=== PATIENT | male | born 1935 | race Caucasian/White ===

== ENCOUNTER 2018-08-18 20:31 | Emergency (ER) | payer OTHER ==
[2018-08-18] MEDS ORDERED: Morphine 4 MG/ML VIAL ONE (20:55)
[2018-08-18] MEDS ORDERED: Propofol 10 mg/ml Inj (20 ML) IV ONE (21:09)
[2018-08-18 21:19] LABS: BASO # 0.1 K/uL (0.0-0.2); BASO % 0.9 % (0.0-2.0); EOS # 0.3 K/uL (0.0-0.7); EOS % 3.5 % (0.0-4.0); HEMOGLOBIN 11.3 g/dL (12.0-18.0); LYMPH # 3.8 K/uL (1.0-4.3); MEAN CELL VOLUME 85.3 fL (80.0-94.0); MEAN CORPUSCULAR HEMOGLOBIN 27.6 pg (27.0-31.0); MEAN CORPUSCULAR HGB CONC 32.4 g/dL (33.0-37.0); MEAN PLATELET VOLUME 9.8 fL (7.2-11.7); MONO # 0.8 K/uL (0.0-0.8); MONO % 8.9 % (0.0-10.0); NEUT # 3.5 K/uL (1.8-7.0); NEUT % 41.7 % (50.0-75.0); NRBC % 0.1 % (0.0-2.0); RBC 4.08 Mil/uL (4.40-5.90); RED CELL DISTRIBUTION WIDTH 15.4 % (11.5-14.5); WHITE BLOOD COUNT 8.5 K/uL (4.8-10.8)
[2018-08-18] MEDS ORDERED: Propofol 10 mg/ml Inj (20 ML) ONE (21:19)
--- NOTE | 2018-08-18 21:27 | C.PDOC ---
History Of Present Illness 83 y/o male brought in by ambulance for evaluation s/p trip and fall while walking. Patient complains of pain and obvious deformity to the right shoulder. Otherwise he denies any head trauma, LOC/syncope, chest pain, SOB, numbness, t ingling, or other injury. <Abraham Castellanos E - Last Filed: 08/18/18 21:40> History Per: Patient History/Exam Limitations: no limitations Onset/Duration Of Symptoms: Mins Current Symptoms Are (Timing): Still Present <Abraham Castellanos - Last Filed: 08/18/18 21:40> <Aaron Pradhan - Last Filed: 08/23/18 13:32> Time Seen by Provider: 08/18/18 20:47 Chief Complaint (Nursing): Upper Extremity Problem/Injury Past Medical History Reviewed: Historical Data, Nursing Documentation, Vital Signs Vital Signs: Last Vital Signs Temp 99.0 F 08/18/18 20:31 Pulse 74 08/18/18 21:00 Resp 22 08/18/18 20:31 BP 126/73 08/18/18 21:00 Pulse Ox 95 08/18/18 20:31 - Medical History PMH: Anemia, Arthritis, HTN, Hypercholesterolemia Family History: States: Unknown Family Hx - Social History Hx Alcohol Use: No Hx Substance Use: No <Abraham Castellanos - Last Filed: 08/18/18 21:40> Vital Signs: Last Vital Signs Temp 97.1 F L 08/19/18 03:47 Pulse 86 08/19/18 03:47 Resp 20 08/19/18 03:47 BP 149/70 08/19/18 03:47 Pulse Ox 98 08/19/18 03:47 <Aaron Pradhan - Last Filed: 08/23/18 13:32> Review Of Systems Except As Marked, All Systems Reviewed And Found Negative. Cardiovascular: Negative for: Chest Pain Respiratory: Negative for: Shortness of Breath Musculoskeletal: Positive for: Shoulder Pain (right shoulder deformity). Negative for: Neck Pain, Hand Pain Neurological: Negative for: Weakness, Numbness, Incoordination <Abraham Castellanos - Last Filed: 08/18/18 21:40> Physical Exam - Physical Exam Appears: Non-toxic, No Acute Distress Skin: Warm, Dry Head: Atraumatic, Normacephalic, No Swelling (or hematoma) Eye(s): bilateral: Normal Inspection, PERRL, EOMI Oral Mucosa: Moist Neck: Normal ROM, No Midline Cervical Tenderness, Supple, Other (No evidence of trauma to neck) Cardiovascular: Rhythm Regular, No Murmur Respiratory: Normal Breath Sounds, No Accessory Muscle Use Extremity: Capillary Refill (< 2 sec), Deformity (+ Anterior dislocation of the right shoulder, with deltoid step-off, no clavicular deformity), No Swelling Pulses: Left Radial: Normal, Right Radial: Normal Neurological/Psych: Oriented x3, Normal Speech <Abraham Castellanos Carlyle Last Filed: 08/18/18 21:40> ED Course And Treatment - Laboratory Results Result Diagrams: 08/18/18 21:16 08/18/18 21:16 O2 Sat by Pulse Oximetry: 95 (RA) Pulse Ox Interpretation: Normal <Abraham Castellanos Carlyle Filed: 08/18/18 21:40> - Laboratory Results Result Diagrams: 08/18/18 21:16 08/18/18 21:16 <Aaron Pradhan Last Filed: 08/23/18 13:32> Orthopedic Time Performed: 22:00 Time Out: Site verified Procedure: Joint reduction Location: Right Consent obtained: Written Performed by: Mid-level Provider Diagnosis: Dislocation Type: Closed Location: Right Joints: Glenohumeral Joint Other:: Anterior inferior dislocation Anesthetic Technique: Procedural sedation Procedural Sedation: Propofol Systemic Analgesia: Morphine Other:: 2mg Capillary refill: Normal Distal Sensation: Normal Distal Motor Function: Normal Capillary Refill: Normal Compartment: Normal Distal Sensation: Normal Post-reduction Radiograph: Good Alignment Patient tolerated procedure: Well <Aaron Pradhan Filed: 08/23/18 13:32> Medical Decision Making Medical Decision Making: Plan: * x-rays taken * blood work * EKG * Morphine 2 mg IVP * Zofran 4 mg IVP Pt continuing to complain of pain. Ordered IV Toradol and Propofol. <Abraham Castellanos Last Filed: 08/18/18 21:40> Medical Decision Making: Normal neurovascular/neuromuscular examination post procedure Full motor/ sensation in R arm post procedure Patient A&O x3 post procedure Post reduction Xray: satisfactory alignment <Aaron Pradhan Last Filed: 08/23/18 13:32> Disposition <Abraham Castellanos E - Last Filed: 08/18/18 21:40> - Disposition Disposition Time: 01:00 <PradhanTorys Rocky - Last Filed: 08/23/18 13:32> - Disposition Referrals: Deb Valentin MD [Medical Doctor] - Disposition: HOME/ ROUTINE Condition: GOOD Additional Instructions: ice packs 1/2 hour per hour, nothing hot. motrin/advil/ibuprofen 600 mg every 6 hours as needed Tramadol 50 mg (narcotic) for more severe pain keep arm sling in place for 3 days Follow-up with Orthopedics as referred: Dr. [facility] Therapist. Prescriptions: traMADol [Ultram] 50 mg PO Q6H PRN #10 tab PRN Reason: pain Instructions: Shoulder Dislocation Forms: [employer] (Pakistani) - Clinical Impression Clinical Impression: Shoulder dislocation - Scribe Statement The provider has reviewed the documentation as recorded by the Kaylen Doan Provider Attestation: All medical record entries made by the Emilyibfilippo were at my direction and personally dictated by me. I have reviewed the chart and agree that the record accurately reflects my personal performance of the history, physical exam, medical decision making, and the department course for this patient. I have also personally directed, reviewed, and agree with the discharge instructions and disposition. <Abraham Castellanos E - Last Filed: 08/18/18 21:40> Proc Sedation PRE-PROCEDURE <Abraham Castellanos - Last Filed: 08/18/18 21:40> - Pre-Anesthesia Past Medical History: Medications Reviewed, Allergies Reviewed, Record Review Previous Surgies: Reviewed Family History/Social History: Reviewed - Physical Exam/Review of Systems Vital Signs Reviewed: Yes Vital Signs and Pre-Procedure Checklist: HR 56 BP 126/60 RR 18 O2 Sat 100 RA Cardiovascular: Normal S1, S2. denies: Murmurs Respiratory/Chest: Clear to Auscultation, Good Air Exchange. denies: Respiratory Distress, Accessory Muscle Use Neurological: GCS=15, Speech Normal Abdomen: denies: Tenderness, Distention Mental Status: Alert and Oriented X 3 - Pre-Procedure Airway Assessment History of difficult intubation or surgical airway (i.e trach):: No Inability to extend neck:: No Mouth opening less than two finger breadth:: No Diagnosis of sleep apnea:: No Less than three finger breadth to hyoid bone:: No ASA Criteria: 1 - Healthy, normal. 2 - Mild systemic disease (No functional limitations, mildline obesity, DM withot complications, Hypertention). 3 - Severe systemic disease (Some functional limitation, stable angina, morbid obesity, controlled COPD/Asthma/CHF). 4 - Sever systemic disease constant threat to life (Unstable angina, active symptoms of COPD/Asthma, CHF/Hypertension. 5 - Moribund ASA Clarification: ASA II <Aaron Pradhan - Last Filed: 08/23/18 13:32> - Pre-Anesthesia Chief Complaint: Upper Extremity Problem/Injury Proc Sedation POST-PROCEDURE - REACT Score REACT Score: 12 - Discharge Checklist Written MD order for Discharge: Yes Vital signs assessed and are consistent with pre-procedure reading: Yes Voided (if applicable): Yes Minimal nausea, vomiting, and dizziness: Yes Ambulates to pre-procedural level: Yes Alert and oriented to pre-procedural level: Yes Responsible adult escort present: Yes DISCHARGE INSTRUCTIONS GIVEN:: Yes <Aaron Pradhan - Last Filed: 08/23/18 13:32>
[2018-08-18 21:39] LABS: BLOOD UREA NITROGEN 23 mg/dL (9-20); CALCIUM 8.7 mg/dl (8.6-10.4); GFR NON-AFRICAN AMERICAN 58
[2018-08-18 21:41] LABS: ALB/GLOB RATIO 1.1 (1.0-2.1); ALBUMIN 3.9 g/dL (3.5-5.0); ALT/SGPT 18 U/L (21-72); AST/SGOT 38 U/L (17-59)
[2018-08-18 21:50] LABS: B-TYPE NATRIURETIC PEPTIDE 535 pg/mL (0-900)
--- NOTE | 2018-08-18 23:29 | C.PDOC ---
Time Seen by Provider: 08/18/18 20:47 Chief Complaint (Nursing): Upper Extremity Problem/Injury Past Medical History Vital Signs: Last Vital Signs Temp 99.0 F 08/18/18 20:31 Pulse 74 08/18/18 21:00 Resp 22 08/18/18 20:31 BP 126/73 08/18/18 21:00 Pulse Ox 95 08/18/18 20:31 - Medical History PMH: Anemia, Arthritis, HTN, Hypercholesterolemia Family History: States: Unknown Family Hx - Social History Hx Alcohol Use: No Hx Substance Use: No ED Course And Treatment ECG: Interpreted By Me ECG Rhythm: Sinus Rhythm ECG Interpretation: Normal O2 Sat by Pulse Oximetry: 95 Pulse Ox Interpretation: Normal - Radiology CXR: Interpreted by Me CXR Interpretation: Yes: No Acute Disease - Other Rad R shoulder X-Ray: Interpreted by Me (+ disloc, no fx, ) post redux X-Ray: Interpreted by Me (good reloc, no fx) Reevaluation Time: 23:30 Reassessment Condition: Improved (much improved, normal R arm neurovasc) Medical Decision Making Medical Decision Making: traumatic R shoulder disloc, now s/p reloc. normal head CT Disposition Doctor Will See Patient In The: Office Counseled Patient/Family Regarding: Studies Performed, Diagnosis - Disposition Disposition: HOME/ ROUTINE Disposition Time: 23:33 Condition: GOOD - Clinical Impression Clinical Impression: Shoulder dislocation
[2018-08-19 03:47] VITALS: BP 149/70; PULSE 86; RESP 20; TEMP 97.1; O2SAT 98
--- NOTE | 2018-08-19 07:36 | CT ---
Date of service: 08/18/2018 PROCEDURE: CT HEAD WITHOUT CONTRAST. HISTORY: fall, no head injury, normal neuro COMPARISON: None available. TECHNIQUE: Axial computed tomography images were obtained through the head/brain without intravenous contrast. Radiation dose: Total exam DLP = 982.82 mGy-cm. This CT exam was performed using one or more of the following dose reduction techniques: Automated exposure control, adjustment of the mA and/or kV according to patient size, and/or use of iterative reconstruction technique. FINDINGS: HEMORRHAGE: No intracranial hemorrhage. BRAIN: No mass effect or edema. No atrophy or chronic microvascular ischemic changes. VENTRICLES: Unremarkable. No hydrocephalus. CALVARIUM: Unremarkable. PARANASAL SINUSES: Mild mucosal thickening of the ethmoid sinuses noted. MASTOID AIR CELLS: Unremarkable as visualized. No inflammatory changes. OTHER FINDINGS: Deformity of the nasal bone noted which could be due to old fracture. IMPRESSION: No evidence of acute intracranial hemorrhage mass effect or midline shift. Mild volume loss and chronic microvascular white matter ischemic changes. Additional findings as described above. Preliminary report contains concordant findings was submitted to the referring physician.
--- NOTE | 2018-08-19 08:56 | RAD ---
Date of service: 08/18/2018 PROCEDURE: CHEST RADIOGRAPH, 1 VIEW HISTORY: SOB COMPARISON: None available. FINDINGS: LUNGS: The lungs are well inflated and clear. PLEURA: No pneumothorax or pleural effusion. CARDIOVASCULAR: Mild cardiomegaly and prominent central vasculature. Atherosclerotic aortic arch calcifications are present. OSSEOUS STRUCTURES: There is anterior inferior dislocation of the right glenohumeral joint. The left glenohumeral joint is normal. VISUALIZED UPPER ABDOMEN: Normal. OTHER FINDINGS: None. IMPRESSION: No active pulmonary disease. Anterior inferior right glenohumeral dislocation.
--- NOTE | 2018-08-19 11:43 | RAD ---
Date of service: 08/18/2018 PROCEDURE: Radiographs of the right shoulder HISTORY: fx/disloc COMPARISON: 05/29/2015 TECHNIQUE: AP and lateral views of the right shoulder joint were obtained. FINDINGS: Anterior inferior glenohumeral dislocation. There is diffuse bone demineralization. No acute displaced fracture. 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 IMPRESSION: Anterior inferior glenohumeral dislocation. No acute displaced fracture.
--- NOTE | 2018-08-19 12:23 | RAD ---
Date of service: 08/18/2018 PROCEDURE: Right shoulder HISTORY: post-redux COMPARISON: August 18, 2018. TECHNIQUE: Standard protocol for this study/examination. FINDINGS: Anatomic alignment returned right glenohumeral relationship. No visible fracture. Underlying acromioclavicular and glenohumeral degenerative change. IMPRESSION: Satisfactory anatomic alignment post right shoulder reduction. Concordant results with the preliminary interpretation rendered by the emergency department physician procedure.
--- NOTE | 2018-08-19 23:35 | CARD ---
APPROVED REPORT Date of service: 08/18/2018 EKG Measurement Heart [id number] <Conclusion> A Fib with slow Ventricular response Low voltage QRS Borderline ECG
== END 2018-08-19 04:51 | disposition home or self-care (01) ==
LOC: C.ER 20:31
DX: S43.014A Anterior dislocation of right humerus, initial encounter (principal); W01.0XXA Fall on same level from slipping, tripping and stumbling without subsequent striking against object, initial encounter; Y93.01 Activity, walking, marching and hiking; E78.00 Pure hypercholesterolemia, unspecified; I10 Essential (primary) hypertension
CPT/HCPCS: 23650; 70450; 71045; 73020; 80053; 82948; 83880; 84484; 85025; 93005; 96374; 96375; 99285; J1885; J2270; J2405

== ENCOUNTER 2018-10-18 09:15 | Day surgery (SDC) | payer OTHER ==
[2018-10-18 08:13] VITALS: BMI 34.2
[2018-10-18 09:45] LABS: BASO # 0.1 K/uL (0.0-0.2); BASO % 1.5 % (0.0-2.0); EOS # 0.3 K/uL (0.0-0.7); EOS % 4.1 % (0.0-4.0); HEMOGLOBIN 11.8 g/dL (12.0-18.0); LYMPH # 2.3 K/uL (1.0-4.3); LYMPH % 35.3 % (20.0-40.0); MEAN CELL VOLUME 86.8 fL (80.0-94.0); MEAN CORPUSCULAR HEMOGLOBIN 28.3 pg (27.0-31.0); MEAN CORPUSCULAR HGB CONC 32.6 g/dL (33.0-37.0); MONO # 0.5 K/uL (0.0-0.8); MONO % 7.5 % (0.0-10.0); NEUT # 3.4 K/uL (1.8-7.0); NEUT % 51.6 % (50.0-75.0); RBC 4.16 Mil/uL (4.40-5.90); RED CELL DISTRIBUTION WIDTH 15.7 % (11.5-14.5); WHITE BLOOD COUNT 6.5 K/uL (4.8-10.8)
[2018-10-18 09:53] LABS: INR 1.1; PROTHROMBIN TIME 12.2 SECONDS (9.7-12.2)
[2018-10-18 10:05] LABS: BLOOD UREA NITROGEN 11 mg/dL (9-20); CALCIUM 8.7 mg/dl (8.6-10.4); GFR NON-AFRICAN AMERICAN > 60
[2018-10-18] MEDS ORDERED: Iodixanol 320 MG/ML 100 ML BOTTLE IV ONE ×2 (11:20→11:54)
[2018-10-18] MEDS ORDERED: Midazolam 2 MG/2 ML VIAL ONE (11:32)
[2018-10-18] MEDS ORDERED: Verapamil 2 ML ONE (12:07)
--- NOTE | 2018-10-24 08:01 | CARDCATH ---
PROCEDURE DATE: 10/18/2018 PROCEDURES: 1. Left heart catheterization. 2. Coronary angiogram. REFERRING PHYSICIANS: Issac Hernandez MD CLINICAL INDICATIONS: 1. Angina. 2. Abnormal stress test. 3. Diabetes. 4. Hypertension. 5. Hyperlipidemia. DESCRIPTION OF PROCEDURE: After informed consent, the patient was prepped and draped in the usual sterile fashion. A 2% lidocaine was given in the right wrist for local anesthesia. Using micropuncture technique, a 6-[place] sheath was introduced into the right radial artery. A JR-4 diagnostic catheter crossed into the left ventricle across the aortic valve. LV end-diastolic pressure measured. Contrast injected and LV angiogram was done. Then, the catheter was pulled back across the aortic valve. Gradient across the aortic valve was measured. Then, the same catheter engaged into right coronary artery. Contrast injected and right coronary angiogram was done. The catheter was exchanged to a 6-[place] Thaxton catheter. The Thaxton catheter engaged into left main coronary artery. Contrast injected and left coronary angiogram was done. The patient tolerated the procedure well. Post-procedure, Terumo radial band applied to the right wrist with excellent hemostasis. Radiological supervision and radiological interpretation of the coronary imaging was done. FINDINGS: 1. Left main coronary artery is patent. 2. LAD and diagonal branches are patent. 3. Left circumflex and obtuse marginal branches are patent. 4. Right coronary artery is dominant and patent. 5. LV ejection fraction is approximately 65%. No wall motion abnormality noted. EDP is 17. No gradient across the aortic valve. IMPRESSION: 1. Normal coronaries. 2. Normal left ventricular systolic function. Recommend medical management. Issac Hernandez MD
== END 2018-10-18 16:10 | disposition home or self-care (01) ==
LOC: C.CATHLAB 09:15
PROVIDERS: ATTEND Internal Medicine Cardiovascular Disease
DX: I20.9 Angina pectoris, unspecified (principal); E11.9 Type 2 diabetes mellitus without complications; E78.5 Hyperlipidemia, unspecified; I10 Essential (primary) hypertension
CPT/HCPCS: 36415; 80048; 82948; 85025; 85610; 85730; 93458; 99152; 99153; C1769; C1887; J1644; J2250; J3010; Q9967